=== PATIENT | male | born 1995 | race Two or more races ===

== ENCOUNTER 2025-06-01 08:02 | Emergency (ER) | payer OTHER ==
[~2025-06-01] VITALS: Ht 170.2 cm; Wt 86.2 kg
[~2025-06-01 08:02] MED LIST: MUPIROCIN15 GM TP; ULTRAM50 MG
[2025-06-01 10:08] LABS: BASO % 0.5 % (0.1-1.2); EOS # 0.26 (0.04-0.54); EOS % 2.4 % (0.7-7.0); LYMPH # 2.43 (1.18-3.74); LYMPH % 22.1 % (19.3-53.1); MEAN PLATELET VOLUME 9.00 fl (9.4-12.4); MONO # 1.09 (0.24-0.82); MONO % 9.9 % (4.7-12.5); NEUT # 7.13 (1.56-6.13); NEUT % 64.6 % (34.0-71.1); RED CELL DISTRIBUTION WIDTH 12.5 % (11.6-14.4)
[2025-06-01 10:30] LABS: COVID-19 AG NEGATIVE (NEGATIVE)
[2025-06-01] MEDS ORDERED: GILTUSS COUGH-118 M1 PO (10:51)
[2025-06-01] MEDS ORDERED: ZITHROMAX TRI-500 MG PO (10:51)
[2025-06-01] MEDS ORDERED: ACETAMINOPHEN500 M1 PO (10:51)
== END 2025-06-01 11:03 | disposition home or self-care (01) ==
LOC: ER 08:02
PROVIDERS: Preventive Medicine Public Health & General Preventive Medicine
DX: J06.9 Acute upper respiratory infection, unspecified (principal); R05.9 Cough, unspecified; Z20.822 Contact with and (suspected) exposure to COVID-19